=== PATIENT | male | born 1995 | race Caucasian/White ===

== ENCOUNTER 2021-07-31 02:39 | Emergency (ER) | payer BC, SELFPAY ==
[~2021-07-31] VITALS: Ht 170.2 cm; Wt 89.8 kg
[2021-07-31 02:50] VITALS: BP_SYST 114
--- NOTE | 2021-07-31 02:50 | NUR ---
Patient triaged and placed in the tent. VSS and patient appears in no acute distress at this time. Accompanied by parents, awaiting available bed, and MD notified of need for MSE.
--- NOTE | 2021-07-31 03:30 | NUR ---
Call pt name in the waiting.No answer.
--- NOTE | 2021-07-31 03:35 | NUR ---
Call pt name in the waiting.No answer.
--- NOTE | 2021-07-31 03:40 | NUR ---
Call pt name in the waiting.No answer.
== END 2021-07-31 03:40 | disposition left against medical advice (07) ==
LOC: SED 02:39
DX: R05.9 Cough, unspecified (principal); Z53.21 Procedure and treatment not carried out due to patient leaving prior to being seen by health care provider